=== PATIENT | female | born 1990 | race African-American/Black ===

== ENCOUNTER 2016-08-31 12:01 | Emergency (ER) | payer SELFPAY ==
[~2016-08-31] VITALS: Ht 167.6 cm; Wt 97.0 kg
[~2016-08-31 12:01] MED LIST: BACT800T5 PO; HYDR-3533 PO
[2016-08-31 12:03] VITALS: BP 128/77; PULSE 75; RESP 16; TEMP 98.6; O2SAT 96
[2016-08-31] MEDS ORDERED: ERYTOIN10 LEFT EYE (12:13)
--- NOTE | 2016-08-31 12:14 | PD ---
HPI Chief Complaint: Eye Problems/Injury Time Seen by Provider: 12:10 Travel History International Travel<30 days: No Contact w/Intl Traveler<30days: No Traveled to known affect area: No History of Present Illness HPI 26-year-old female here with complaint of left eye redness. Patient has had 2- 3 days of progressively worsening redness, foreign body sensation and itching to the left eye. She notes occasionally she gets a film that comes over the eye which causes a blurry sensation but otherwise no change in her vision. This is uncomfortable but not painful. Patient does wear glasses and contacts, most recently having her contacts in 5 days ago. 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 Reported Meds & Prescriptions Reported Meds & Active Scripts Active Erythromycin Opth Oint 5 Mg/Gm Oint 1 Applic LEFT EYE BID Bactrim DS (Sulfamethoxazole-Trimethoprim DS) 1 Tab Tab 1 Tab PO BID Lortab 5 mg/325 mg (Hydrocodone/Acetaminophen 5 mg/325 mg) 1 Tab 1 Tab PO Q6H PRN Review of Systems Except as stated in HPI: all other systems reviewed are Neg Physical Exam Narrative GENERAL: Well-appearing female in no acute distress SKIN: Focused skin assessment warm/dry. HEAD: Normocephalic. EYES: Pupils equal and round. 3 mm. EOMI. No afferent pupillary defect. No scleral icterus. Left eye conjunctiva is injected and erythematous with yellowish discharge. ENT: Mucous membranes pink and moist. NECK: Supple CARDIOVASCULAR: Regular rate and rhythm. RESPIRATORY: No accessory muscle use. MUSCULOSKELETAL: Normal gait NEUROLOGICAL: Awake and alert. Normal speech. PSYCHIATRIC: Appropriate mood and affect; insight and judgment normal. Data Data Last Documented VS Vital Signs Date Time Temp Pulse Resp B/P Pulse Ox O2 Delivery O2 Flow Rate FiO2 08/31/16 12:03 98.6 75 16 128/77 96 MDM Medical Decision Making Medical Screen Exam Complete: Yes Emergency Medical Condition: Yes Medical Record Reviewed: Yes Differential Diagnosis 26-year-old contact lens wearer with left eye redness, discharge. Exam is consistent with conjunctivitis. Narrative Course Will treat with antibiotic ointment for home. Diagnosis Primary Impression: Conjunctivitis, left eye Qualified Code: H10.32 - Acute bacterial conjunctivitis of left eye Referrals: Mariela Muniz MD as needed Additional Instructions: Antibiotic ointment to the left eye as prescribed. Follow-up with manager business continuity if symptoms persist and return to the ER for the warning signs discussed. No contact lenses until the infection is clear. Discard the contact lenses urine most recently wearing. Med/Other Pt SpecificInfo: Prescription(s) given Scripts Erythromycin Opth Oint 5 Mg/Gm Oint1 Applic LEFT EYE BID #1 TUBE Ref 0 Prov:Angela Spencer MD 08/31/16 Disposition: 01 DISCHARGE HOME Condition: Stable Angela Spencre MD Aug 31, 2016 12:14
== END 2016-08-31 12:36 | disposition home or self-care (01) ==
LOC: NEPD 12:01
DX: H10.9 Unspecified conjunctivitis (principal); Z79.899 Other long term (current) drug therapy; Z72.0 Tobacco use
CPT/HCPCS: 99283

== ENCOUNTER 2016-09-03 09:46 | Emergency (ER) | payer SELFPAY ==
[~2016-09-03] VITALS: Ht 167.6 cm; Wt 97.5 kg
[2016-09-03 09:47] VITALS: BP 139/93; PULSE 77; RESP 14; TEMP 98; O2SAT 100
--- NOTE | 2016-09-03 10:08 | PD ---
HPI Chief Complaint: Medical Clearance Time Seen by Provider: 10:02 Travel History International Travel<30 days: No Contact w/Intl Traveler<30days: No Traveled to known affect area: No History of Present Illness HPI 26-year-old Afro-[place] female presents for follow-up recent conjunctivitis. Patient has been treated with erythromycin ointment, and states that she is 90% improved from previous visit. Patient was seen 2 days prior to this visit. She is here for work release as she can return to work. She has no other acute complaints. PFSH Past Medical History Diminished Hearing: No Immunizations Current: Yes ?: Not : 1 Para: 0 : 1 Social History Alcohol Use: Yes (OCC) Tobacco Use: No Substance Use: No Allergies-Medications (Allergen,Severity, Reaction): Coded Allergies: *MDRO Multi-Drug Resistant Organism (Unverified Adverse Reaction, Unknown , 09/03/16) MRSA toe 09/2014. Reported Meds & Prescriptions Reported Meds & Active Scripts Active Review of Systems Except as stated in HPI: all other systems reviewed are Neg General / Constitutional: No: Fever Eyes: Positive: Redness (improving), Tearing (improving), No: Diploplia, Blurred Vision, Photophobia, Drainage, Foreign Body Sensation, Pain, Blind Spots , Visual changes, Blindness HENT: No: Headaches Cardiovascular: No: Chest Pain or Discomfort Respiratory: No: Shortness of Breath Gastrointestinal: No: Abdominal Pain Genitourinary: No: Dysuria Musculoskeletal: No: Pain Skin: No Rash Neurologic: No: Weakness Psychiatric: No: Depression Endocrine: No: Polydipsia Hematologic/Lymphatic: No: Easy Bruising Physical Exam Narrative GENERAL: Patient is in no acute distress. SKIN: Warm and dry. Normal color. Normal turgor. No rash. HEAD: Atraumatic. Normocephalic. EYES: Pupils equal and round. No scleral icterus. Bilateral injection noted without purulent drainage. ENT: No nasal bleeding or discharge. Mucous membranes pink and moist. TMs are clear. Pharynx is clear. Airway is patent. NECK: Trachea midline. Supple nontender. CARDIOVASCULAR: Regular rate and rhythm. RESPIRATORY: No accessory muscle use. Clear to auscultation. Breath sounds equal bilaterally. MUSCULOSKELETAL: Extremities without clubbing, cyanosis, or edema. No obvious deformities. NEUROLOGICAL: Awake and alert. No obvious cranial nerve deficits. Motor grossly within normal limits. Five out of 5 muscle strength in the arms and legs. Normal speech. PSYCHIATRIC: Appropriate mood and affect; insight and judgment normal. Data Data Last Documented VS Vital Signs Date Time Temp Pulse Resp B/P Pulse Ox O2 Delivery O2 Flow Rate FiO2 09/03/16 09:47 98.0 77 14 139/93 100 MDM Medical Decision Making Medical Screen Exam Complete: Yes Emergency Medical Condition: Yes Medical Record Reviewed: Yes Differential Diagnosis Improving bilateral conjunctivitis. Corneal abrasion. No for work. Narrative Course Patient is medically cleared to return to work without restriction. Patient is to continue the erythromycin ointment as previously prescribed. Patient to follow up with home health care coordinator as needed. Return to work note is given. Referrals: [employer] Patient Instructions: Conjunctivitis (ED), General Instructions Departure Forms: Work Release Special Instructions: Patient is medically cleared to return to work without restriction as she has been on antibiotics for conjunctivitis for greater than 48 hours. Additional Instructions: Patient is medically cleared to return to work without restriction. Patient is to continue the erythromycin ointment as previously prescribed. Patient to follow up with home health care coordinator as needed. Return to work note is given. Med/Other Pt SpecificInfo: No Change to Meds Scripts No Active Prescriptions or Reported Meds Disposition: 01 DISCHARGE HOME Condition: Stable Roger Ly Sep 03, 2016 10:08
== END 2016-09-03 10:24 | disposition home or self-care (01) ==
LOC: NEPK 09:46
DX: H10.9 Unspecified conjunctivitis (principal)
CPT/HCPCS: 99281

== ENCOUNTER 2017-05-06 10:46 | Emergency (ER) | payer SELFPAY ==
[2017-05-06 11:19] VITALS: BP 132/73; PULSE 82; RESP 18; TEMP 99.2; O2SAT 100
[2017-05-06] MEDS ORDERED: ONDANSETRON ODT 4 MG TAB PO ONE (11:30)
[2017-05-06 11:53] LABS: AUTOMATED NEUTROPHIL # 6.5 TH/MM3 (1.8-7.7); BASOPHIL % 0.3 % (0.0-2.0); EOSINOPHIL # 0.1 TH/MM3 (0-0.4); EOSINOPHIL % 1.3 % (0.0-4.0); HEMATOCRIT 37.3 % (35.0-46.0); HEMOGLOBIN 12.2 GM/DL (11.6-15.3); LYMPH % 12.2 % (9.0-44.0); MEAN CELL VOLUME 75.4 FL (80.0-100.0); MEAN CORPUSCULAR HEMOGLOBIN 24.6 PG (27.0-34.0); MEAN CORPUSCULAR HGB CONC 32.7 % (32.0-36.0); MEAN PLATELET VOLUME 8.8 FL (7.0-11.0); MONO % 6.8 % (0.0-8.0); MONOCYTE # 0.6 TH/MM3 (0-0.9); NEUT % 79.4 % (16.0-70.0); PLATELET COUNT 278 TH/MM3 (150-450); RED BLOOD COUNT 4.94 MIL/MM3 (4.00-5.30); RED CELL DISTRIBUTION WIDTH 16.2 % (11.6-17.2); WHITE BLOOD COUNT 8.2 TH/MM3 (4.0-11.0)
[2017-05-06 11:59] LABS: BILIRUBIN, URINE NEG (NEG); BLOOD, URINE NEG (NEG); GLUCOSE,URINE NEG (NEG); KETONE, URINE NEG (NEG); MUCUS URINE FEW /lpf (OCC); NITRITE,URINE NEG (NEG); PH, URINE 6.5 (5.0-8.5); SQUAMOUS EPITHELIAL CELL URINE 4 /hpf (0-5); URINE COLOR YELLOW (YELLW/STRAW); URINE LEUKOCYTE ESTERASE NEG (NEG)
[2017-05-06 12:12] LABS: ALBUMIN 3.6 GM/DL (3.4-5.0); ALT (GPT) 18 U/L (10-53); AST (GOT) 16 U/L (15-37); BICARBONATE 26.7 MEQ/L (21.0-32.0); BLOOD UREA NITROGEN 8 MG/DL (7-18); CALCIUM 8.9 MG/DL (8.5-10.1); CHLORIDE 104 MEQ/L (98-107); CREATININE 0.77 MG/DL (0.50-1.00); GLOMERULAR FILTRATION RATE 109 ML/MIN (>89); GLUCOSE,RANDOM 92 MG/DL (74-106); SODIUM (NA) 137 MEQ/L (136-145)
[2017-05-06 12:14] LABS: ALKALINE PHOSPHATASE 82 U/L (45-117); TOTAL BILIRUBIN ADULT 0.2 MG/DL (0.2-1.0); TOTAL PROTEIN 8.4 GM/DL (6.4-8.2)
[2017-05-06] MEDS ORDERED: BACT800T5 PO (12:21)
[2017-05-06] MEDS ORDERED: ZOFR4TAB3 SL (12:21)
--- NOTE | 2017-05-06 12:29 | PD ---
HPI Chief Complaint: Abdominal Pain Time Seen by Provider: 11:49 Travel History International Travel<30 days: No Contact w/Intl Traveler<30days: No Traveled to known affect area: No History of Present Illness HPI 26-year-old female presents to the emergency department with complaint of nausea , vomiting, and loose stools since this morning. Reports epigastric pain only prior to vomiting and is relieved after vomiting. Denies fever, chills. Denies blood in her stool or vomit. Denies abdominal pain at this time. Denies dysuria. Denies history of abdominal surgeries. Last menstrual period April 19, 2017. Positive risk . He was given Zofran in triage and says she feels much better. Last vomited about an hour ago. Has not had anything to drink or eat since after her last vomiting episode. Has not taken any medication or tried any treatments to alleviate her symptoms. No known aggravating or relieving factors. No one else with similar symptoms. Is also complaining of an area to her left arm that is red and painful that she noticed on Saturday. She does not know if maybe a bug bit her. Says the area is itchy and painful. Rates pain 7/10. Has not taken any medication or try any treatments to alleviate the symptoms. Up-to-date on tetanus vaccination. No known relieving factors. Aggravated by palpation. No primary care provider. No known allergies. Denies significant past medical history. Has no other medical complaints. No other modifying factors or associated signs and symptoms. PFSH Past Medical History ?: Not LMP: 04/15/2017 Social History Alcohol Use: Yes Tobacco Use: No Substance Use: No Allergies-Medications (Allergen,Severity, Reaction): Coded Allergies: No Known Allergies (Unverified , 05/06/17) Reported Meds & Prescriptions Reported Meds & Active Scripts Active Zofran Odt (Ondansetron Odt) 4 Mg Tab 4 Mg SL Q8HR PRN Bactrim DS (Sulfamethoxazole-Trimethoprim) 800-160 Mg Tab 1 Tab PO BID 10 Days Review of Systems Except as stated in HPI: all other systems reviewed are Neg Physical Exam Narrative GENERAL: Well-nourished, well-developed black female patient, in no acute distress; afebrile, nontoxic-appearing SKIN: There is an indurated area in the left lateral antecubital area which measures about 1 cm in diameter. It is not fluctuant and there is no pointing or drainage. There is a zone of inflammation around it but no lymphangitis. HEAD: Atraumatic. Normocephalic. EYES: Pupils equal and round. No scleral icterus. No injection or drainage. ENT: Mucosa pink and moist. NECK: Trachea midline. CARDIOVASCULAR: Regular rate and rhythm. No murmur appreciated. RESPIRATORY: No accessory muscle use. Clear to auscultation. Breath sounds equal bilaterally. GASTROINTESTINAL: Abdomen soft, non-tender, nondistended. Hepatic and splenic margins not palpable. Bowel sounds are active 4 quadrants. No rebound tenderness. Negative Lester sign. Nonrigid. Bladder nontender and nondistended. MUSCULOSKELETAL: No obvious deformities. No clubbing. No cyanosis. No edema. BACK: No CVA tenderness NEUROLOGICAL: Awake and alert. Oriented 3. No obvious cranial nerve deficits. Motor grossly within normal limits. Normal speech. Moves all extremities. 5/5 strength to all extremities. PSYCHIATRIC: Appropriate mood and affect; insight and judgment normal. Data Data Last Documented VS Vital Signs Date Time Temp Pulse Resp B/P (MAP) Pulse Ox O2 Delivery O2 Flow Rate FiO2 05/06/17 11:19 99.2 82 18 132/73 (92) 100 Orders Orders Ondansetron Odt (Zofran Odt) (05/06/17 11:30) Complete Blood Count With Diff (05/06/17 11:22) Comprehensive Metabolic Panel (05/06/17 11:22) Lipase (05/06/17 11:22) Urinalysis - C+S If Indicated (05/06/17 11:22) Ed Urine Pregnancytest Poc (05/06/17 11:22) Ed Discharge Order (05/06/17 13:50) Labs Laboratory Tests Test 05/06/17 11:34 05/06/17 11:39 White Blood Count 8.2 TH/MM3 Red Blood Count 4.94 MIL/MM3 Hemoglobin 12.2 GM/DL Hematocrit 37.3 % Mean Corpuscular Volume 75.4 FL Mean Corpuscular Hemoglobin 24.6 PG Mean Corpuscular Hemoglobin Concent 32.7 % Red Cell Distribution Width 16.2 % Platelet Count 278 TH/MM3 Mean Platelet Volume 8.8 FL Neutrophils (%) (Auto) 79.4 % Lymphocytes (%) (Auto) 12.2 % Monocytes (%) (Auto) 6.8 % Eosinophils (%) (Auto) 1.3 % Basophils (%) (Auto) 0.3 % Neutrophils # (Auto) 6.5 TH/MM3 Lymphocytes # (Auto) 1.0 TH/MM3 Monocytes # (Auto) 0.6 TH/MM3 Eosinophils # (Auto) 0.1 TH/MM3 Basophils # (Auto) 0.0 TH/MM3 CBC Comment DIFF FINAL Differential Comment Blood Urea Nitrogen 8 MG/DL Creatinine 0.77 MG/DL Random Glucose 92 MG/DL Total Protein 8.4 GM/DL Albumin 3.6 GM/DL Calcium Level 8.9 MG/DL Alkaline Phosphatase 82 U/L Aspartate Amino Transf (AST/SGOT) 16 U/L Alanine Aminotransferase (ALT/SGPT) 18 U/L Total Bilirubin 0.2 MG/DL Sodium Level 137 MEQ/L Potassium Level 3.9 MEQ/L Chloride Level 104 MEQ/L Carbon Dioxide Level 26.7 MEQ/L Anion Gap 6 MEQ/L Estimat Glomerular Filtration Rate 109 ML/MIN Lipase 77 U/L Urine Color YELLOW Urine Turbidity HAZY Urine pH 6.5 Urine Specific [place] 1.020 Urine Protein 30 mg/dL Urine Glucose (UA) NEG mg/dL Urine Ketones NEG mg/dL Urine Occult Blood NEG Urine Nitrite NEG Urine Bilirubin NEG Urine Urobilinogen LESS THAN 2.0 MG/DL Urine Leukocyte Esterase NEG Urine RBC LESS THAN 1 /hpf Urine WBC 2 /hpf Urine Squamous Epithelial Cells 4 /hpf Urine Mucus FEW /lpf Microscopic Urinalysis Comment CULT NOT INDICATED MDM Medical Decision Making Medical Screen Exam Complete: Yes Emergency Medical Condition: Yes Medical Record Reviewed: Yes Differential Diagnosis Gastroenteritis, cholecystitis, cholelithiasis, gastritis, cellulitis, abscess Narrative Course 26-year-old female with nausea, vomiting, diarrhea since this morning. Has epigastric pain only prior to vomiting. No abdominal pain at this time. No abdominal pain elicited on exam. Patient was given Zofran in triage and is feeling better. Denies fever. Patient is afebrile and nontoxic-appearing. 1220: CBC, CMP, lipase, urinalysis unremarkable. UPT negative. I discussed patient with Dr. Malone, attending physician, and he agrees with the plan of care. Patient will be given oral challenge and if tolerating well will be discharged home. 1351: Patient has tolerated fluid challenge and without continued nausea or vomiting. Zofran and Bactrim prescribed for home. Instructed patient to follow up with primary care provider. Patient verbalizes understanding and agreement with treatment plan. Patient is medically cleared and stable for discharge. Discussed reasons to return to the emergency department. Patient agrees with treatment plan. The patients vital signs are stable and the patient is stable for outpatient follow-up and treatment. Patient discharged home, stable and in no acute distress. Diagnosis Primary Impression: Gastroenteritis Additional Impression: Left arm cellulitis Referrals: [facility] Primary Care Physician Patient Instructions: Abscess (ED), Cellulitis (ED), General Instructions Additional Instructions: Take Zofran as prescribed for nausea/vomiting Increase fluid intake, starting with clear fluids; advancing to a bland diet as tolerated Williams diet to include crackers, rice, toast, bananas as tolerated, advancing slowly to regular diet Follow-up primary care provider in next 1-2 days Return to emergency department immediately with worsening of symptoms Complete full course of antibiotics Warm compresses to the affected area Keep area clean and dry Ibuprofen or Tylenol as directed and as needed for pain and inflammation Return to the emergency department or follow-up with primary care provider if an abscess develops and needs to be drained Follow-up with primary care provider Return to emergency department immediately with worsening of symptoms Med/Other Pt SpecificInfo: Prescription(s) given Scripts Ondansetron Odt (Zofran Odt) 4 Mg Tab 4 MG SL Q8HR Y for Nausea/Vomiting, #6 TAB 0 Refills Prov: Colette Magallon 05/06/17 Sulfamethoxazole-Trimethoprim (Bactrim DS) 800-160 Mg Tab 1 TAB PO BID for Infection for 10 Days, #20 TAB 0 Refills Prov: Colette Magallon 05/06/17 Disposition: 01 DISCHARGE HOME Condition: Stable Colette Magallon May 06, 2017 12:29
== END 2017-05-06 14:21 | disposition home or self-care (01) ==
LOC: MERGE 10:46 → NEPD 10:46
DX: K52.9 Noninfective gastroenteritis and colitis, unspecified (principal); L03.114 Cellulitis of left upper limb; R10.13 Epigastric pain
CPT/HCPCS: 80053; 81001; 83690; 84703; 85025; 99283